=== PATIENT | male | born 1960 | race Caucasian/White ===

== ENCOUNTER → 2017-11-26 | Day surgery (SDC) | payer OTHER ==
[~2017-11-26] MED LIST: ASPI81TA50 PO; HYDR12.53 PO; IV RINGERS,LACTATED 1000ML 1,000 ML IV SCH; LIDOCAINE 1% PF 2 ML VIAL. ID PRN; LOVA20TA2 PO; MIDAZOLAM HCL/PF 2 MG/2 ML VIAL. IV PRN; PROPOFOL 40 ML IV ONE; VALS40TA2 PO; ePHEDrine PF IN SALINE 50 MG/5 ML DISP.SYRIN IV ONE; fentaNYL PF VIAL 100 MCG/2 ML VIAL IV PRN
--- NOTE | 2017-11-26 08:55 | PDOC1 ---
HISTORY & PHYSICAL H&P Lauri Cavazos [id number] 1960 11/20/2017 03:00 PM 02/25 [employer] [facility] OUR PATIENTS COME FIRST [address] [place] [address]. [phone] Patient: Lauri Cavazos Date of : 1960 Date: 11/20/2017 3:00 PM Visit Type: Consult This 57 year old male presents for Screening colonoscopy. History of Present Illness: 1. Screening colonoscopy No prior screening. Denies risk factors. Pertinent negatives include abdominal pain, change in bowel habits, change in stool caliber, constipation, decreased appetite, diarrhea, melena, nausea, rectal bleeding, vomiting, weight gain and weight loss. Additional information: No family history of colon cancer , No family history of Crohn's/colitis and No NSAID/ASA use. INTAKE COMMENTS: Intake Comments: patient states he is here for a colonoscopy PAST MEDICAL/SURGICAL HISTORY (Detailed) Disease/disorder Onset Date Management Date Comments cellulitis nose wrist both Gout Hypertension Family History (Detailed) Relationship Family Member Name Age at Condition Onset Age Cause of Father Y Hypertension Y Mother Lymphoma Y Sister Diabetes mellitus N Social History: (Detailed) Tobacco use reviewed. Preferred language is Nigerian. Smoking status: Light tobacco smoker. SMOKING STATUS Type Smoking Status Usage Per Day Years Used Total Pack Years Light tobacco smoker Medications (active prior to today) Medication Name Sig Description Start Date Stop Date Refilled Rx Elsewhere lisinopril 20 mg tablet take 1 tablet by oral route every day // Y valsartan 40 mg tablet take 1 Tablet by oral route every day // Y allopurinol 100 mg tablet take 1 tablet by oral route every day // Y Medications (Added, Continued or Stopped today) Start Date Medication Directions PRN Status PRN Reason Instruction Stop Date allopurinol 100 mg tablet take 1 tablet by oral route every day N lisinopril 20 mg tablet take 1 tablet by oral route every day N valsartan 40 mg tablet take 1 Tablet by oral route every day N Allergies: Ingredient Reaction (Severity) Medication Name Comment PENICILLINS Review of Systems System Neg/Pos Details Constitutional Negative Chills, Fever, Malaise, Weight gain and Weight loss. ENMT Negative Sore throat. Eyes Negative Double vision. Respiratory Negative Dyspnea and Wheezing. Cardio Negative Chest pain and Irregular heartbeat/palpitations. GI Positive See HPI. GI Negative Abdominal pain, Change in bowel habits, Change in stool caliber, Constipation, Decreased appetite, Diarrhea, Melena, Nausea, See HPI, Rectal bleeding and Vomiting. Negative Dysuria and Hematuria. Endocrine Negative Cold intolerance and Heat intolerance. Psych Negative Anxiety. Integumentary Negative Hives and Rash. MS Negative Joint pain. Lamonte/Lymph Negative Easy bleeding and Easy bruising. Allergic/Immuno Negative Food allergies. Vital Signs Time BP mm/Hg Pulse /min Resp /min Temp F Ht ft Ht in Ht cm Wt lb Wt kg BMI kg/ m2 BSA m2 O2 Sat% 3:09 PM 130/80 97 16 97.5 5.0 10.00 177.80 287.00 130.181 41.18 2.54 96 Measured By Time Measured by 3:09 PM Joseline Swygert PHYSICAL EXAM: Exam Findings Details Constitutional Normal Well developed. Eyes Normal Conjunctiva - Right: Normal, Left: Normal. Sclera - Right: Normal, Left: Normal. Nasopharynx Normal Lips/teeth/gums - Normal. Neck Exam Normal Inspection - Normal. Thyroid gland - Normal. Respiratory Normal Inspection - Normal. Auscultation - Normal. Cardiovascular Normal Regular rate and rhythm. No murmurs, gallops, or rubs. Abdomen Normal Inspection - Normal. Anterior palpation - No guarding. No abdominal tenderness. No hepatic enlargement. No spleen enlargement. No hernia. No ascites. Skin Normal Inspection - Normal. Extremity Normal No edema. Psychiatric Normal Orientation - Oriented to time, place, person & situation. Appropriate mood and affect. Assessment/Plan # Detail Type Description 1. Assessment Encounter for screening colonoscopy (Z12.11). Patient Plan schedule colonoscopy at [facility] Plan Orders Further diagnostic evaluations ordered today include(s) Colonoscopy , flexible; diagnostic to be performed today. He is to schedule a follow-up visit with Shelly Shelton MD upon completion of work-up. Co-Sign Orders Order Ordering Provider Cosigned Name Cosigned Date Cosigner Comments Colonoscopy, flexible; diagnostic Shelly Shelton 11/20/2017 follow-up visit with Shelly Shelton MD upon completion of work-up Sehlly Shelton 11/20/2017 Active Patient Care Team Members Name Contact Agency Type Support Role Relationship Active Date Inactive Date Specialty Raciel Duran Patient provider PCP Document Electronically signed: Shelly Shelton MD 11/20/2017 03:43 PM Document generated by: Shelly Shelton 11/20/2017 Meche Hebert MD, Family Practice; Marck Carrillo MD Internal Medicine; Salazar Huang MD, Internal Medicine; Bindu Shelton MD Internal Medicine; Shelly Shelton MD, Gastroenterology; Gentry Erazo MD, Rheumatology, Skye Sofieenoc NEGOTIATIONS DIRECTOR ------ 11/26/17 Patient seen and examined. No change in H&P SHELLY SHELTON MD Nov 26, 2017 08:55
[2017-11-26 09:19] VITALS: BP 157/95
--- NOTE | 2017-11-27 16:10 | PATHOLOGY ---
[facility] Accession Number: [id number] . 01 Material submitted: . SIGMOID COLON POLYP . 01 Clinician provided ICD-10: Z12.11 . 01 Clinical history: . Pre-OP DX: Screening Post-OP DX: Polyp . 02 Diagnosis: Sigmoid colon polypectomy: - Tubular adenoma, with focal surface erosion and acute inflammation. P/11/27/2017 . 02 Comment: There is no high-grade dysplasia or evidence of malignancy. (JPM:[facility] 11/27/2017) . 02 Electronically signed: . Lauri Wise MD, Pathologist NPI- [id number] . 01 Gross description: . Received in formalin labeled "Lauri Cavazos, sigmoid colon polyp," is a 2.3 x 1.4 x 1.1 cm polypoid piece of tanner soft tissue. The margin is inked and the specimen is sectioned perpendicular to the margin and entirely submitted in cassette A1 and A2. (TSD; 11/26/2017) TOB/TOB . 02 Pathologist provided ICD-10: D12.2 . 02 CPT . 159928 Specimen Comment: A courtesy copy of this report has been sent to Specimen Comment: [phone], . Specimen Comment: Report sent to / DR HOANG Performed at: [facility] [address], [place] [id number] MD Wing Zavala MD Phone: [phone] Performed at: 02 [facility] [address], [place] [id number] MD Lauri Wise MD Phone: [phone]
== END | disposition home or self-care (01) ==
LOC: SURG 07:44
PROVIDERS: ATTEND Internal Medicine Gastroenterology
DX: Z12.11 Encounter for screening for malignant neoplasm of colon (principal); K57.30 Diverticulosis of large intestine without perforation or abscess without bleeding; D12.5 Benign neoplasm of sigmoid colon; Z88.0 Allergy status to penicillin; I10 Essential (primary) hypertension; M10.9 Gout, unspecified; Z83.3 Family history of diabetes mellitus; Z82.49 Family history of ischemic heart disease and other diseases of the circulatory system; F17.200 Nicotine dependence, unspecified, uncomplicated; Z79.899 Other long term (current) drug therapy
CPT/HCPCS: 45385; 88305; C1757; J2704; 45380